=== PATIENT | female | born 1980 | race Caucasian/White ===

== ENCOUNTER 2016-10-28 05:27 | Inpatient (IN) | payer BC ==
[2016-10-14 13:02] VITALS: BMI 28.0
--- NOTE | 2016-10-14 13:17 | PAT Medication Instructions ---
Service Date October 14, 2016. Current Home Medication List Multivit/Min/Iron/Fol Ac/Pren ( Vitamin), 1 TAB PO DAILY Medication Instructions For Your Scheduled Surgery - Hold the following medications the morning of surgery: Multivit/Min/Iron/Fol Ac/Pren ( Vitamin), 1 TAB PO DAILY Nothing to eat or drink after midnight If you have any questions please call us at [phone] or [phone] or [phone]
[2016-10-14 13:58] LABS: HEMATOCRIT 33.3 % (37-47); MEAN CELL VOLUME 91.2 fL (80-100); MEAN CORPUSCULAR HEMOGLOBIN 30.4 pg (25-34); MEAN CORPUSCULAR HGB CONC 33.3 g/dl (32-36); MEAN PLATELET VOLUME 11.2 fL (7.4-10.4); PLATELET COUNT 185 K/uL (130-400); RED BLOOD COUNT 3.65 M/uL (4.2-5.4); WHITE BLOOD COUNT 7.41 K/uL (4.8-10.8)
[2016-10-14 14:30] LABS: BASO % 0.1 %; BASO ABS # 0.01 K/uL (0-0.2); COMPLETE YES; EOS % 1.6 %; IG% 0.3 %; LYMPH % 19.7 %; LYMPH ABS # 1.46 K/uL (1.2-3.4); MONO % 7.7 %; NEUT % 70.6 %
[~2016-10-28] VITALS: Ht 154.9 cm; Wt 68.3 kg
[2016-10-28] VITALS (13 sets, daily range): BP systolic 94–110; BP diastolic 65–72; PULSE 86–93; TEMP 36.6–37.4; O2SAT 96–99; Ht 154.9 cm; Wt 68.3 kg
[~2016-10-28 05:27] MED LIST: PRENTAB26 PO
[2016-10-28] MEDS ORDERED: CEFAZOLIN IV 2,000 MG in DEXTROSE 5% 50ML IV SCH (06:00)
[2016-10-28] MEDS ORDERED: CITRIC ACID/SODIUM CITRATE 15 ML UDC PO SCH (06:00)
[2016-10-28 06:06] LABS: BASO % 0.3 %; BASO ABS # 0.03 K/uL (0-0.2); EOS % 2.1 %; HEMATOCRIT 36.1 % (37-47); IG% 0.2 %; LYMPH % 29.9 %; LYMPH ABS # 2.71 K/uL (1.2-3.4); MEAN CELL VOLUME 90.7 fL (80-100); MEAN CORPUSCULAR HEMOGLOBIN 30.4 pg (25-34); MONO % 7.3 %; NEUT % 60.2 %; PLATELET COUNT 171 K/uL (130-400); RED BLOOD COUNT 3.98 M/uL (4.2-5.4); WHITE BLOOD COUNT 9.06 K/uL (4.8-10.8)
[2016-10-28 06:08] LABS: COMPLETE YES; MEAN CORPUSCULAR HGB CONC 33.5 g/dl (32-36)
[2016-10-28] MEDS: LACTATED RINGER'S 1000ML 1,000 ML IV SCH ×2 (06:43→06:56)
--- NOTE | 2016-10-28 07:23 | History & Physical Bridge Note ---
H&P Re-Evaluation Bridge Note: I have examined the patient, reviewed the History & Physical and in the interval since the performance of the History & Physical I have noted the following changes of clinical significance: No changes noted
[2016-10-28] MEDS ORDERED: MoRPHine SULFATE PF 1 MG/ML 10 ML AMP/VIAL ONE (07:25)
[2016-10-28] MEDS ORDERED: FENTANYL CITRATE INJ 50 MCG/1 ML 2 ML VIAL ONE (07:25)
[2016-10-28] MEDS ORDERED: OXYTOCIN INJ 10 UNITS/ML VIAL ONE (07:59)
[2016-10-28] MEDS ORDERED: ONDANSETRON INJ 2 MG/ML 2 ML VIAL ONE (07:59)
[2016-10-28] MEDS ORDERED: KETOROLAC TROMETHAMINE 30 MG/ML VIAL ONE ×2 (07:59→09:27)
[2016-10-28] MEDS ORDERED: PHENYLEPHRINE 100MCG/ML 5ML SYR ONE (07:59)
[2016-10-28] MEDS ORDERED: OXYTOCIN INJ 10 UNITS/ML VIAL IM ONE (08:08)
[2016-10-28] MEDS ORDERED: LACTATED RINGER'S 1000ML 1,000 ML IV SCH ×2 (09:09→12:45)
[2016-10-28] MEDS ORDERED: SODIUM CHLORIDE 0.9% 1000ML 1,000 ML IV PRN (09:10)
[2016-10-28] MEDS ORDERED: NALOXONE HCL INJ 1 MG in SODIUM CHLORIDE 0.9% 1000ML 1,000 ML IV PRN (09:10)
[2016-10-28] MEDS ORDERED: NALOXONE HCL INJ 0.08 MG in SYRINGE 1.8 ML IV PRN (09:10)
[2016-10-28] MEDS ORDERED: LACTATED RINGER'S 1000ML 500 ML IV PRN (09:10)
[2016-10-28] MEDS ORDERED: HYDROCORTISONE ACETATE 25 MG SUPP PR PRN (09:15)
[2016-10-28] MEDS ORDERED: DiphenhydrAMINE HCL 50 MG/ML VIAL IV PRN ×2 (09:15)
[2016-10-28] MEDS ORDERED: MEPERIDINE HCL 25 MG/ML CARP IV PRN (09:15)
[2016-10-28] MEDS ORDERED: SENNA 8.6 MG TAB PO PRN (09:15)
[2016-10-28] MEDS ORDERED: ONDANSETRON INJ 2 MG/ML 2 ML VIAL IV PRN (09:15)
[2016-10-28] MEDS ORDERED: NALBUPHINE HCL INJ 10 MG/ML AMP IV PRN (09:15)
[2016-10-28] MEDS ORDERED: NO NARCOTICS OR SEDATIVES SCH (09:15)
[2016-10-28] MEDS ORDERED: MAGNESIUM HYDROXIDE SUSP 30 ML UDC PO PRN (09:15)
[2016-10-28] MEDS ORDERED: NALOXONE HCL 0.4 MG/1 ML VIAL/CARP IV PRN (09:15)
[2016-10-28] MEDS ORDERED: MoRPHine SULFATE 2 MG/ML CARP IV PRN (09:15)
[2016-10-28] MEDS ORDERED: LANOLIN OINT EXT PRN ×2 (09:15)
[2016-10-28] MEDS ORDERED: MoRPHine SULFATE PF 1 MG/ML 10 ML AMP/VIAL EPI PRN (09:15)
[2016-10-28] MEDS ORDERED: KETOROLAC TROMETHAMINE 30 MG/ML VIAL IV. PRN (09:15)
[2016-10-28] MEDS ORDERED: PROMETHAZINE HCL INJ 6.25 MG in SODIUM CHLORIDE 0.9% 50ML 50 ML IV PRN (09:15)
[2016-10-28] MEDS ORDERED: EpHEDrine SULFATE INJ 50 MG/ML AMP IV PRN (09:15)
[2016-10-28] MEDS ORDERED: BENZOCAINE 20% AER SPR 82.5 GM CAN EXT PRN (09:15)
[2016-10-28] MEDS ORDERED: SUPERCREAM 0.870 % 15GM JAR EXT PRN (09:15)
--- NOTE | 2016-10-28 09:41 | Anesthesiology Progress Note ---
Anesthesia Post Op Note Date & Time Oct 28, 2016 at 09:41 Notes Mental Status: alert / awake / arousable, participated in evaluation Pt Amnestic to Procedure: Yes Nausea / Vomiting: adequately controlled Pain: adequately controlled Airway Patency, RR, SpO2: stable & adequate BP & HR: stable & adequate Hydration State: stable & adequate Neuraxial Anesthesia: was administered, sensory block is resolving Anesthetic Complications: no major complications apparent
[2016-10-28] MEDS: OXYTOCIN INJ 20 UNITS in LACTATED RINGER'S 1000ML 1,000 ML IV SCH ×2 (10:39→17:32)
--- NOTE | 2016-10-28 10:43 | OPERATIVE REPORT ---
DATE OF OPERATION: 10/28/2016 INDICATION FOR PROCEDURE: This is a 36-year-old patient, at term, previous section, wishes to have repeat . The patient is also interested in permanent sterilization. PREOPERATIVE DIAGNOSES: 1. at term. 2. Previous section, wishes to have repeat . 3. Undesired fertility, wishes to have permanent sterilization. POSTOPERATIVE DIAGNOSES: Same. SURGEON: Dr. Christopher. ORTHOPHOTO TECH/DRAFTSMAN: Dr. Hummel. ANESTHESIA: Spinal. PROCEDURE: Repeat section with bilateral tubal ligation. COMPLICATIONS: None. PICKERING DRAIN: 200 mL clear urine at the end of the procedure. IV FLUIDS: 1000 mL ESTIMATED BLOOD LOSS: 500 mL PATHOLOGY: Placenta. FINDINGS: Live infant male delivered in occiput anterior presentation. The uterus appeared grossly normal except for 2 small 1 cm uterine fibroids on the anterior portion of the uterus. The rest of the abdominopelvic exam was unremarkable. DISPOSITION: Stable to recovery room. PROCEDURE IN DETAIL: The patient was taken to the operating room where she was prepped and draped in normal sterile fashion. Timeout was called. A Pfannenstiel incision was made through the old scar with a scalpel and carried down to the fascia. Fascia was incised in the midline and extended laterally on both sides. Rectus abdominis muscle was identified. Peritoneum was identified, entered sharply. Once inside the abdomen, an Joe retractor was placed in the abdomen for retraction. Findings of the abdomen as dictated above. The vesicouterine peritoneum was identified, sharply dissected off the lower segment of the uterus. A transverse incision was made on the lower segment of the uterus and extended laterally on both sides. was delivered atraumatically. Cord was clamped and cut and handed over to waiting pediatric team. Weight and Apgars are in the pediatric record. The placenta was manually removed. Uterus was exteriorized and cleared of all clots and debris. Uterus was closed in 2 layers using Vicryl stitch. There was good hemostasis. Copious amount of irrigation was used to irrigate the abdomen. The left and right fallopian tubes were identified and followed to their fimbriated end, this was identified by both surgeon and freezer assistant. Mid portion of the fallopian tubes were identified, grabbed, and modified [place] tubal ligation performed. SPECIMENS SENT TO PATHOLOGY: Include the left and right fallopian tube for identification. There was good hemostasis at the end of tubal ligation. The uterus was returned into the abdominal cavity. Further inspection of the incision sites showed good hemostasis. The vesicouterine peritoneum was reapproximated using plain suture. The Joe retractor was removed. The peritoneum was closed in a running fashion using plain suture. The rectus abdominis muscle was loosely reapproximated using plain suture as well. The fascia was closed in a running fashion using Vicryl stitch. More irrigation was used to irrigate the subcu space. The subcu space was reapproximated using 2-0 plain suture and the skin was closed with dwight. All instruments were removed from the abdomen including sponges, needles and retractors and accounted for x2. Baby and mother are doing well in recovery. I attest to the content of the Intraoperative Record and any orders documented therein. Any exception s are noted below.
[2016-10-28] MEDS: SIMETHICONE 80 MG CHEW PO SCH ×3 (12:00→20:33)
[2016-10-28] MEDS: DOCUSATE SODIUM 100 MG CAP PO SCH (20:33)
[2016-10-29] VITALS (8 sets, daily range): BP systolic 92–100; BP diastolic 60–67; PULSE 85–118; TEMP 36.6–37; O2SAT 96–98
[2016-10-29] MEDS ORDERED: DC INTRASPINAL MORPHINE SCH (02:00)
[2016-10-29] MEDS ORDERED: KETOROLAC TROMETHAMINE 30 MG/ML VIAL IV. PRN (02:01)
[2016-10-29] MEDS ORDERED: ONDANSETRON INJ 2 MG/ML 2 ML VIAL IV PRN (02:01)
[2016-10-29] MEDS ORDERED: DiphenhydrAMINE HCL 50 MG/ML VIAL IV PRN (02:01)
[2016-10-29] MEDS ORDERED: PROMETHAZINE HCL INJ 25 MG in SODIUM CHLORIDE 0.9% 50ML 50 ML IV PRN (02:01)
[2016-10-29] MEDS ORDERED: MEPERIDINE HCL 50 MG/ML CARP IV PRN ×2 (02:01)
[2016-10-29] MEDS ORDERED: OXYCODONE/ACETAMINOPHEN 5-325 TAB PO PRN ×2 (02:01)
[2016-10-29] MEDS ORDERED: ZOLPIDEM TARTRATE 5 MG TAB PO PRN (02:01)
[2016-10-29] MEDS: IBUPROFEN 600 MG TAB PO PRN ×4 (05:32→20:57)
[2016-10-29 07:09] LABS: HEMATOCRIT 32.4 % (37-47); MEAN CELL VOLUME 89.5 fL (80-100); MEAN CORPUSCULAR HEMOGLOBIN 28.7 pg (25-34); MEAN CORPUSCULAR HGB CONC 32.1 g/dl (32-36); MEAN PLATELET VOLUME 10.2 fL (7.4-10.4); PLATELET COUNT 141 K/uL (130-400); RED BLOOD COUNT 3.62 M/uL (4.2-5.4); WHITE BLOOD COUNT 11.83 K/uL (4.8-10.8)
--- NOTE | 2016-10-29 08:23 | Anesthesiology Progress Note ---
Anesthesia Post Op Note Date & Time Oct 29, 2016 at 08:23 Vital Signs Pain Intensity: 4.0 Vital Signs Past 12 Hours Date Time Temp Pulse Resp B/P (MAP) Pulse Ox O2 Delivery O2 Flow Rate FiO2 10/29/16 04:00 36.8 118 18 97/67 (77) Room Air 10/29/16 02:00 18 96 10/29/16 01:30 18 96 10/29/16 00:30 18 97 10/29/16 00:00 96 Room Air 10/29/16 00:00 37.0 105 18 97/64 (75) 96 Room Air 10/28/16 23:30 18 96 10/28/16 22:30 16 97 10/28/16 21:30 16 97 10/28/16 20:30 16 98 Notes Mental Status: alert / awake / arousable, participated in evaluation Pt Amnestic to Procedure: Yes Nausea / Vomiting: adequately controlled Pain: adequately controlled Airway Patency, RR, SpO2: stable & adequate BP & HR: stable & adequate Hydration State: stable & adequate Neuraxial Anesthesia: was administered, sensory block resolved Anesthetic Complications: no major complications apparent
[2016-10-29 08:25] LABS: BASO % 0.2 %; BASO ABS # 0.02 K/uL (0-0.2); COMPLETE YES; EOS % 0.8 %; IG% 0.2 %; LYMPH % 11.5 %; LYMPH ABS # 1.36 K/uL (1.2-3.4); MONO % 6.3 %
[2016-10-29] MEDS: PRENATAL VITAMIN TAB PO SCH (08:52)
[2016-10-29] MEDS: DOCUSATE SODIUM 100 MG CAP PO SCH ×2 (08:52→20:08)
[2016-10-29] MEDS: FERROUS SULFATE 325 MG TAB PO SCH (08:52)
[2016-10-29] MEDS: SIMETHICONE 80 MG CHEW PO SCH ×4 (08:53→20:08)
--- NOTE | 2016-10-29 10:00 | OB/GYN Progress Note ---
CIDER PRESS OPERATOR Progress Note Date of Service: Oct 29, 2016. Patient is seen and examined. She feels well, no complaints. Pain is under control with oral meds. Ambulating without dizziness Voiding without difficulty Tolerating regular diet with out N&V Flatus NEG BM NEG Bleeding is minimal No fever/ chills/ CP/ SOB/ N&V/ Leg pain Breast feeding without problems Date Time Temp Pulse Resp B/P (MAP) Pulse Ox O2 Delivery O2 Flow Rate FiO2 10/29/16 08:10 36.9 98 16 92/60 (71) 98 Room Air 10/29/16 08:10 98 Room Air 10/29/16 04:00 36.8 118 18 97/67 (77) Room Air 10/29/16 02:00 18 96 10/29/16 01:30 18 96 10/29/16 00:30 18 97 10/29/16 00:00 96 Room Air 10/29/16 00:00 37.0 105 18 97/64 (75) 96 Room Air 10/28/16 23:30 18 96 10/28/16 22:30 16 97 10/28/16 21:30 16 97 10/28/16 20:30 16 98 10/28/16 19:30 16 97 10/28/16 19:30 37.4 86 16 94/65 (75) 97 Room Air 10/28/16 18:30 16 99 10/28/16 17:35 16 99 10/28/16 16:02 Room Air 10/28/16 16:02 36.7 93 16 104/70 (81) 99 Room Air 10/28/16 16:02 16 99 10/28/16 15:34 15 99 10/28/16 14:30 16 99 10/28/16 13:35 17 99 10/28/16 12:30 16 98 10/28/16 11:35 36.6 91 16 110/72 (85) 99 Room Air 10/28/16 11:35 16 99 10/28/16 11:35 99 Room Air 10/28/16 11:35 99 Room Air PE: General: Alert, orientedx3, NAD CVS: S1S2 RRR Lungs; CTAB Abd: soft, NT, fundus firm, below Umbilicus, BS+ good Incision: Clean, dry, intact Perineum intact, Lochia rubra minimal Ext; NT, no edema AP: 36 yo s/p C Section, pod# 1 VSS Afebrile doing well Continue routine postop care Encourage ambulation, PO intake All questions were answered
[2016-10-29] MEDS ORDERED: BISACODYL 5 MG TABEC PO ONE (22:00)
[2016-10-30] MEDS: IBUPROFEN 600 MG TAB PO PRN ×2 (05:49→12:09)
[2016-10-30 06:32] LABS: HEMATOCRIT 30.6 % (37-47)
[2016-10-30] MEDS ORDERED: BISACODYL 10 MG SUPP PR PRN (07:00)
[2016-10-30 08:00] VITALS: BP 91/58; PULSE 92; TEMP 36.8; O2SAT 95
[2016-10-30] MEDS: FERROUS SULFATE 325 MG TAB PO SCH (08:25)
[2016-10-30] MEDS: SIMETHICONE 80 MG CHEW PO SCH (08:25)
[2016-10-30] MEDS: PRENATAL VITAMIN TAB PO SCH (08:25)
[2016-10-30] MEDS: DOCUSATE SODIUM 100 MG CAP PO SCH (08:25)
[2016-10-30] MEDS ORDERED: MTR600X PO (08:35)
[2016-10-30] MEDS ORDERED: OXYC-57 PO (08:35)
--- NOTE | 2016-10-30 08:36 | Discharge Instructions ---
Discharge Instructions Date of Service Oct 30, 2016. Admission Reason for Admission: Previous Section, Desires Sterilization Discharge Discharge Diagnosis / Problem: Repeat Section with BTL Discharge Goals Goal(s): Routine recovery after Activity Recommendations Activity Limitations: per Instructions/Follow-up section . Instructions / Follow-Up Instructions / Follow-Up ACTIVITY RECOMMENDATIONS: * Gradual return to full activity over the next 2-3 weeks. * No lifting - nothing heavier than baby over the next 2-3 weeks. * Do not engage in vigorous exercise, sexual activity or sports until cleared by your physician. * Do not drive or operate any motorized equipment until cleared by your physician. * You may shower/bathe daily. BREAST CARE: If you are not breast feeding: * Wear a supportive bra 24 hours a day for one to two weeks. * Avoid stimulating your breasts and nipples as much as possible during the first few weeks after delivery. * When taking a shower, have the warm water hit your back, not breasts. * When your breasts feel full, apply ice packs. Usually three to four times a day helps ease the discomfort. * Take a mild pain medication (Tylenol/Motrin) when you are uncomfortable. If breast feeding: * Use breast milk to lubricate nipples. Lansinoh cream may be used for sore nipples. You do not need to remove cream prior to breast feeding. If using a different brand of cream, check the label for directions regarding removal of cream prior to nursing. * Wear a supportive bra. * If having problems with breasts or breast feeding, call a digital media sales consultant or your health care provider. OVER THE COUNTER MEDICATION: * For discomfort or pain, you may use Acetaminophen (Tylenol), Ibuprofen (Advil ), or Naproxen (Aleve) following the package directions. * For constipation you may use Colace following the package directions. SPECIAL CARE INSTRUCTIONS: When you are discharged from the hospital, it is important for you to follow the instructions listed below: * During the first week at home, you should be able to care for yourself and your baby. In addition, the usual light household activities are encouraged. * Limit your activities to the way you feel. Do not try to clean the house or move furniture. Be sensible. * If you actively engage in sports and have done so up until the time of your delivery, you may resume these activities as soon as you feel able. This may take up to one month or even longer. Use good judgment. * Continue to take your vitamins for at least six weeks after the of your baby. * Your diet need not be limited unless you were on a special diet before your delivery. Breast-feeding mothers need around 2500 calories per day and at least 64-80 ounces of fluid per day (8 to 10 glasses). * You should eat foods from the four major food groups. Crash diets or fad diets are to be avoided. Eating lean meats, fresh fruits and vegetables, low-fat dairy products, high fiber foods and a regular exercise program, will help you get back to your pre- weight without putting your health at risk. * Constipation is sometimes a problem after delivery. Take a mild laxative as needed. If breast feeding, Milk of Magnesia is acceptable to use. You may use a suppository or Fleets enema if no episiotomy. * A daily shower or tub bath is suggested. Be sure to thoroughly and gently dry the perineum. * A bloody vaginal discharge will usually continue until around four weeks post . A small amount of bleeding may continue for as long as six weeks. Vaginal discharge changes from the bright red bleeding after delivery to pink then brownish and finally yellowish-pink before becoming white and disappearing. * Bleeding may increase with activity. Your first period may come in 4-8 weeks. If you are breast feeding, your period may be delayed even longer. * Tsaile (sex) can begin whenever both you and your partner feel comfortable and do not have any form of genital infection. It is recommended that you wait at least six weeks for internal and external healing to occur. If you have questions, please talk to your health care practitioner. A condom should be used to prevent infection and . * Foreplay, gentle intercourse and lubrication is very important the first several times to prevent pain. A water-based lubricant such as K-Y jelly or Astroglide may be used. * Tampons and/or Douching should be avoided until after six weeks check-up. * If you have RH negative blood and your baby is RH positive, you will receive RHOGAM by injection prior to discharge. The nurse will give you a card to keep with you that has the date and place that you received RHOGAM after delivery. * During your care, you had a Rubella screen done to check for the presence of rubella antibodies in your blood. If your test was negative, you will receive a Rubella vaccine prior to discharge. This vaccine may cause a fever, soreness at the injection site and flu-like symptoms. If these symptoms persist, notify your health care practitioner. is not advised for three months after a Rubella vaccine. * Verbalizes understanding of car seat law as reviewed with patient nursing. * Car Seat hand-out given and reviewed with patient by nursing. * Shaken baby information reviewed with patient by nursing. Call you doctor if: * Heavy bleeding (saturating several pads an hour) or passing clots the size of your fist. * A fever >101 degrees F (38.3 degrees C) on two occasions four hours apart and /or chills. * Unusual pain in the pelvic or vaginal areas. Pain should improve each day . * Call the doctor for any increased redness, drainage or swelling around the incision and any pain unrelieved by prescribed pain medication. * Any signs or symptoms of phlebitis (possible blood clots forming in the veins ): leg pain, warm, red or swollen area on leg. * "Baby Blues" lasting longer than two weeks. If you have any questions or concerns, call your health care practitioner at . FOLLOW-UP VISIT: * Incision check (staple removal) in 1 week. Please call doctor's office at to set up appointment. * Please call the office at to schedule a 6 week examination. It is important you keep this appointment. * It is important for you to make arrangements for either yearly or twice yearly check-ups thereafter. Current Hospital Diet Patient's current hospital diet: Regular Diet Discharge Diet Recommended Diet: Regular OB Diet Procedures Procedures Performed: 1. Lower uterine transverse Caesarean Section for the of a viable male child at 0806. 2. Bilateral Tubal Ligation Pending Studies Studies pending at discharge: no Medical Emergencies . Who to Call and When: Medical Emergencies: If at any time you feel your situation is an emergency, please call 911 immediately. . Non-Emergent Contact Non-Emergency issues call your: Primary Care Provider, [employer] . . "Provider Documentation" section prepared by Nilo Hummel. . VTE Core Measure Inpt VTE Proph given/why not?: Treatment not indicated
--- NOTE | 2016-10-30 08:39 | OB/GYN Progress Note ---
REMELT PAN TANK OPERATOR Progress Note Date of Service Oct 30, 2016. Subjective conversation w/ patient, physical exam Ambulation: ambulating normally Voiding: no voiding problems Passing Gas: Yes Diet Tolerance: Regular Diet Lochia: Moderate Feeding Type: Breast Feeding Pain: 2/10 Notes: Doing well, no concerns. Pain well controlled. Incision is c/d/i. Lochia minimal. Tolerating regular diet, +flatus, +BM. Would like to go home today. Objective Vital Signs Date Time Temp Pulse Resp B/P (MAP) Pulse Ox O2 Delivery O2 Flow Rate FiO2 10/29/16 23:45 96 Room Air 10/29/16 23:45 36.6 85 18 97/65 (76) 96 Room Air 10/29/16 15:30 36.6 93 20 100/65 (77) Room Air 10/29/16 15:30 Room Air Physical Exam General Appearance: WELL-APPEARING Respiratory/Chest: chest non-tender, lungs clear Cardiovascular: regular rate, rhythm Abdomen: normal bowel sounds, soft Fundus: Firm Incision Description: Clean, Dry & Intact Extremities: normal range of motion, non-tender, no calf tenderness Laboratory Results Last 24 Hours Test 10/30/16 06:19 Hemoglobin 9.9 g/dL Hematocrit 30.6 % Assessment and Plan Post-Op Day Number: 2 Continue Routine Care: -D/C home today -F/U in 1 week for incision check
[2016-10-30] MEDS ORDERED: MISC-696 (11:08)
[2016-10-30 13:15] VITALS: BP_DIAS 58; PULSE 92; TEMP 36.8
--- NOTE | 2016-11-26 11:59 | Discharge Summary ---
Discharge Summary Date of Service Nov 26, 2016. Discharge Summary Admission Date: Oct 28, 2016 at 05:27 Discharge Date: Oct 30, 2016 Principal Diagnosis: at term Secondary Diagnoses/Problems: Undesired fertility Procedures: Repeat c/section Bilateral tubal ligation Admission Information HPI (per Admitting provider): This is a 36-year-old due date 11/01/2016 who presented to the [facility] on [facility]2017 for repeat section with bilateral tubal ligation. Surgery was unremarkable details of surgeries and is surgical records patient delivered a live infant Male Weighing 3180 G 8/9. Patient met all milestones. PMH Shows History of Lumbar Regular Positive Cancer History History of Serous Section Vitals on Day of Discharge Showed Temperature 36.8 Pulse of 82 Respiration of 18. Hospital Course see dictation under HPI Total time spent on discharge = This includes examination of the patient, discharge planning, medication reconciliation, and communication with other providers. Discharge Instructions see disch summary
== END 2016-10-30 13:15 | disposition home or self-care (01) | DRG 766 ==
LOC: C.LD 05:27 → C.OBG 11:42 → EDSTATUS 13:32
PROVIDERS: ADMIT Obstetrics & Gynecology; ATTEND Obstetrics & Gynecology
PROC: 10D00Z1 Extraction of Products of Conception, Low, Open Approach (ICD-10-PCS; principal; 2016-10-28 07:30)
PROC: 0UB70ZZ Excision of Bilateral Fallopian Tubes, Open Approach (ICD-10-PCS; principal; 2016-10-28 07:30)
DX: O34.211 Maternal care for low transverse scar from previous cesarean delivery (principal); N85.8 Other specified noninflammatory disorders of uterus; O34.13 Maternal care for benign tumor of corpus uteri, third trimester; D25.9 Leiomyoma of uterus, unspecified; Z30.2 Encounter for sterilization; Z37.0 Single live birth; Z3A.39 39 weeks gestation of pregnancy